=== PATIENT | female | born 1940 ===

== ENCOUNTER 2016-12-11 11:34 | Outpatient (CLI) | payer MEDICARE ==
--- NOTE | 2016-12-11 12:55 | XRay Report ---
LEFT SHOULDER RADIOGRAPHS INDICATION: Pain. COMPARISON: None similar at this institution. FINDINGS: Frontal and Y views of the left shoulder, 3 projections demonstrate normal humeral head contour, well positioned against the glenoid. Normal acromioclavicular joint. Preserved scapular contour. Normal visualized soft tissues, left ribs and lung. Osteopenia/osteoporosis. Thoracic spondylosis. Left paratracheal surgical clips/possible left thyroidectomy. CONCLUSION: No acute left shoulder radiographic abnormality, as described. Thank you for the opportunity to participate in this patient's care.
--- NOTE | 2016-12-11 13:03 | XRay Report ---
XRAY LEFT HAND THREE VIEWS: 12/11/16 11:34:00 CLINICAL: Pain. FINDINGS: Mild osteopenia. No fracture or dislocation. 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 The carpal bones are intact. Normal soft tissues. IMPRESSION: Osteoarthritis.
--- NOTE | 2016-12-11 13:04 | XRay Report ---
XRAY LEFT WRIST FOUR VIEWS:12/11/16 11:34:00 CLINICAL: Pain. FINDINGS: The carpal bones are intact. No fracture or dislocation. Mild radiocarpal joint space narrowing. Moderate osteoarthritis at the basal joint of the thumb. The distal radius and ulna are normal. Normal soft tissues. IMPRESSION: Osteoarthritis at the basal joint of the thumb and otherwise normal.
== END 2016-12-11 11:35 | disposition home or self-care (01) ==
LOC: SPVIMAG 11:34
PROVIDERS: ATTEND Internal Medicine
DX: M19.042 Primary osteoarthritis, left hand (principal); M18.9 Osteoarthritis of first carpometacarpal joint, unspecified; M85.842 Other specified disorders of bone density and structure, left hand; M47.894 Other spondylosis, thoracic region; M25.512 Pain in left shoulder